=== PATIENT | female | born 1990 | race Hispanic/Latino ===

== ENCOUNTER → 2016-10-08 | Outpatient (CLI) | payer OTHER ==
[~2016-10-08] MED LIST: CELE20TA PO; METF10004 PO; OXYC1TAB23 PO; YAZ1TAB PO
--- NOTE | 2016-10-08 22:08 | REP ---
Clinical: Constipation and abdominal pain. Technique: Upright view of the chest with supine and upright views of the abdomen and pelvis. Findings: Frontal upright view of the chest demonstrates no acute cardiopulmonary process or free air below the diaphragm to suspect pneumoperitoneum. Supine and upright views of the abdomen and pelvis demonstrate nonspecific bowel gas pattern without obstruction or perforation. No organomegaly. No abnormal calcifications. Skeletal structures normal for age. Impression: Nonspecific bowel gas pattern. Signed by Leon Méndez MD 10/08/2016 09:59 P
== END ==
LOC: M SMT 11:51
PROVIDERS: ATTEND Family Medicine
DX: K59.00 Constipation, unspecified (principal)

== ENCOUNTER → 2016-10-16 | Outpatient (CLI) | payer OTHER ==
--- NOTE | 2016-10-16 12:44 | REP ---
Clinical: Nausea and vomiting with right upper quadrant abdominal pain. Technique: Escobar scale ultrasound using curved array transducer. Findings: The liver and pancreas are normal in contour, size, and echogenicity without focal hepatic or pancreatic lesions identified. The gallbladder is normal without gallstones, wall thickening or pericholecystic fluid. No biliary ductal dilatation is appreciated, and the common bile duct measures 3.5 mm diameter. The right kidney is normal in reniform shape without hydronephrosis and measures 10.9 x 3.8 x 4.7 cm. No ascites. Visualized portions of the abdominal aorta normal. Impression: Normal right upper quadrant and gallbladder abdominal ultrasound. Signed by Leon Méndez MD 10/16/2016 12:41 P
[2016-10-16 13:50] LABS: BASO % 0.2 % (0.0-1.0); EOS # 0.1 K/mm3 (0.0-0.50); LARGE UNSTAINED CELL # 0.1 K/mm3 (0.0-0.4); LARGE UNSTAINED CELL % 1.9 % (0.0-4.0); LYMPH # 1.8 K/mm3 (1.5-6.5); LYMPH % 32.3 % (24.0-44.0); MEAN CORPUSCULAR HEMOGLOBIN 30.6 pg (27.0-33.0); MEAN CORPUSCULAR HGB CONC 34.4 g/dl (32.0-36.5); MEAN CORPUSCULAR VOLUME 88.9 fl (80.0-96.0); MONO # 0.3 K/mm3 (0.0-0.8); MONO % 4.7 % (0.0-5.0); NEUTROPHILS # 3.4 K/mm3 (1.8-7.7); NEUTROPHILS % 59.9 % (36.0-66.0); PLATELET COUNT, AUTOMATED 256 k/mm3 (150-450); RED CELL DISTRIBUTION WIDTH 12.4 % (11.5-14.5); WHITE BLOOD COUNT 5.7 K/mm3 (4.0-10.0)
[2016-10-16 14:00] LABS: ALBUMIN 3.7 GM/DL (3.2-5.2); ALBUMIN/GLOBULIN RATIO 0.95 (1.00-1.93); ALKALINE PHOSPHATASE 64 U/L (45-117); ALT/SGPT 21 U/L (12-78); AMYLASE 32 U/L (25-115); ANION GAP 7 MEQ/L (8-16); AST/SGOT 16 U/L (15-37); BILIRUBIN,TOTAL 0.3 MG/DL (0.2-1.0); BLOOD UREA NITROGEN 12 MG/DL (7-18); CALCIUM LEVEL 9.1 MG/DL (8.5-10.1); CARBON DIOXIDE LEVEL 28 MEQ/L (21-32); CHLORIDE LEVEL 105 MEQ/L (98-107); CREATININE FOR GFR 0.75 MG/DL (0.55-1.02); GLOMERULAR FILTRATION RATE > 60.0 (>60); GLUCOSE, FASTING 85 MG/DL (70-105); POTASSIUM SERUM 4.9 MEQ/L (3.5-5.1); SODIUM LEVEL 140 MEQ/L (136-145); TOTAL PROTEIN 7.6 GM/DL (6.4-8.2)
== END ==
LOC: M LAB 12:14
PROVIDERS: ATTEND Family Medicine
DX: R10.11 Right upper quadrant pain (principal); R11.2 Nausea with vomiting, unspecified

== ENCOUNTER 2016-10-24 09:52 | Day surgery (SDC) | payer OTHER ==
[~2016-10-24] VITALS: Ht 167.6 cm; Wt 92.5 kg
[~2016-10-24 09:52] MED LIST changes: -OXYC1TAB23 PO
[2016-10-24] MEDS ORDERED: LR 1,000 ML IV ONE (10:15)
[2016-10-24] MEDS ORDERED: LIDOCAINE 1% SDV 5 ML VIAL SQ ONE (10:15)
[2016-10-24] MEDS ORDERED: BUPIVACAINE HCL 0.25% 30 ML VIAL As Ordered ONE (10:42)
[2016-10-24] MEDS ORDERED: METHYLENE BLUE 0.5% (5MG/ML) 10 ML AMP (PROVAYBLUE)(Q9968 PER 1MG) As Ordered ONE (10:42)
[2016-10-24] MEDS ORDERED: LIDOCAINE 2% INJ 100 MG/5 ML SDV (FOR ANES.) As Ordered ONE (10:43)
[2016-10-24] MEDS ORDERED: fentaNYL 100 MCG/2 ML INJECTION (J3010) As Ordered ONE ×2 (10:43→12:22)
[2016-10-24] MEDS ORDERED: ROCURONIUM BROMIDE 50 MG/5 ML VIAL/SYRINGE As Ordered ONE (10:43)
[2016-10-24] MEDS ORDERED: dexameTHASONE 4 MG/ML 1ML VIAL (J1100) As Ordered ONE (10:43)
[2016-10-24] MEDS ORDERED: PROPOFOL 200 MG/20 ML VIAL As Ordered ONE (10:43)
[2016-10-24] MEDS ORDERED: ONDANSETRON 4MG/2ML VIAL (J2405) As Ordered ONE (10:43)
[2016-10-24] MEDS ORDERED: MIDAZOLAM INJ 2 MG/2 ML VIAL (J2250) As Ordered ONE (10:44)
[2016-10-24 10:54] LABS: CONTROL LINE UCG INT CTR LINE PRESENT
[2016-10-24] MEDS ORDERED: OXYC1TAB23 PO (11:17)
[2016-10-24] MEDS ORDERED: ePHEDrine SULFATE 25 MG/5 ML(5MG/ML) SYRINGE As Ordered ONE (11:24)
[2016-10-24] MEDS ORDERED: HYDROmorphone HCL 2 MG/ML 1ML VIAL (J1170) As Ordered ONE (11:35)
[2016-10-24] MEDS ORDERED: GLYCOPYRROLATE INJ 0.2 MG/ML 2 ML VIAL As Ordered ONE (11:35)
[2016-10-24] MEDS ORDERED: NEOSTIGMINE 10 MG/10 ML VIAL (J2710) As Ordered ONE (11:36)
[2016-10-24] MEDS: fentaNYL 100 MCG/2 ML INJECTION (J3010) IV PRN ×4 (12:25→12:50)
[2016-10-24] MEDS ORDERED: PERCOCET 5MG/325MG TAB As Ordered ONE (12:41)
[2016-10-24] MEDS: PERCOCET 5MG/325MG TAB PO PRN ×2 (12:44→13:09)
[2016-10-24] MEDS ORDERED: ONDANSETRON 4MG/2ML VIAL (J2405) IV PRN (12:45)
[2016-10-24] MEDS ORDERED: LR 1,000 ML IV SCH ×2 (12:45→14:00)
[2016-10-24] MEDS ORDERED: PERCOCET 5MG/325MG TAB PO PRN ×2 (12:45)
[2016-10-24 13:35] VITALS: BP 127/60
--- NOTE | 2016-11-13 09:31 | RO ---
DATE OF PROCEDURE: 10/24/2016 PREPROCEDURE DIAGNOSIS: Endometriosis, pelvic pain. POSTPROCEDURE DIAGNOSIS: Pelvic pain. PROCEDURE: Laparoscopy, lysis of mild adhesions. SURGEON: Dr. Reyes Santos SYSTEMS ANALYSIS MANAGER: None. ANESTHESIA: General endotracheal tube. ESTIMATED BLOOD LOSS: Minimal. FINDINGS: No evidence of endometroisis. Normal uterus and fallopian tubes. Mild adhesions of the right ovary to the fundus of the uterus at the level of the utero-ovarian ligament. Both tubes showed ready fill and spill of dye on chromotubation. OPERATIVE SUMMARY: The patient was taken to the operating room where general endotracheal anesthesia was induced. She was prepped and draped in sterile fashion in the dorsal lithotomy position. A Browne catheter was placed. A [employer] uterine tenaculum was placed to use an uterine manipulator. A periumbilical incision made with a scalpel. Veress needle was placed through this incision while tenting up on the skin of the abdomen. Intraabdominal location of the Veress needle was assessed with the use of a saline filled syringe. Pneumoperitoneum was created. The Veress needle was removed. An 11 mm trocar using Visiport was directly inserted through this incision. A 5 mm suprapubic port was placed under direct visualization. Visualization of the abdomen and pelvis revealed the findings noted above. The pelvis was thoroughly examined with no evidence of endometriosis. Adhesions of the right ovary to the uterus were taken down sharply using Endo romel. The uterine manipulator was placed with a Phokki uterine manipulator and dilute methylene blue dye was instilled and there was ready fill and spill from both fallopian tubes. The pneumoperitoneum was released. All instruments were removed. The skin was closed with #4-0 Monocryl subcuticular sutures. Sponge, instrument and needle counts were correct.
== END 2016-10-24 13:55 | disposition home or self-care (01) ==
LOC: M SDC 09:52
PROVIDERS: ATTEND Specialist
DX: R10.2 Pelvic and perineal pain (principal); N73.6 Female pelvic peritoneal adhesions (postinfective); M32.9 Systemic lupus erythematosus, unspecified; F41.9 Anxiety disorder, unspecified; F32.9 Major depressive disorder, single episode, unspecified; F43.10 Post-traumatic stress disorder, unspecified; Z88.1 Allergy status to other antibiotic agents; Z88.5 Allergy status to narcotic agent; Z87.820 Personal history of traumatic brain injury; Z79.84 Long term (current) use of oral hypoglycemic drugs; Z79.899 Other long term (current) drug therapy; Z79.3 Long term (current) use of hormonal contraceptives
CPT/HCPCS: 58660; 84703; J1100; J1170; J2250; J2405; J2710; J3010; Q9968

== ENCOUNTER → 2016-11-04 | Outpatient (REF) | payer OTHER ==
[~2016-11-04] MED LIST changes: +OXYC1TAB23 PO
== END ==
LOC: M LAB REF 17:21
PROVIDERS: ATTEND Family Medicine
DX: R30.0 Dysuria (principal)

== ENCOUNTER → 2016-12-30 | Outpatient (CLI) | payer OTHER ==
--- NOTE | 2016-12-30 22:49 | REP ---
Clinical: Contusion. Technique: AP and lateral views of the left tibia / fibula. Findings: No acute fracture dislocation. Skeletal structures, joint spaces, and surrounding soft tissues appear normal. No subcutaneous emphysema or foreign body. Impression: Normal left tibia / fibula. No fracture or dislocation. Signed by Leon Méndez MD 12/30/2016 10:41 P
== END ==
LOC: M WUC 18:57
PROVIDERS: ATTEND Physician Assistant
DX: S80.12XA Contusion of left lower leg, initial encounter (principal); X58.XXXA Exposure to other specified factors, initial encounter; Y92.89 Other specified places as the place of occurrence of the external cause; Y93.89 Activity, other specified; Y99.8 Other external cause status

== ENCOUNTER → 2017-01-12 | Outpatient (REF) | payer OTHER | LOC: M LAB REF 16:58 | PROVIDERS: ATTEND Physician Assistant Medical | DX: R30.0 Dysuria (principal) ==

== ENCOUNTER 2017-02-10 14:50 | Emergency (ER) | payer OTHER ==
[2017-02-10] MEDS: NS 1,000 ML IV (10:00)
[2017-02-10 15:48] LABS: APPEARANCE, URINE MANUAL HAZY (CLEAR); BILIRUBIN, URINE MANUAL NEGATIVE (NEGATIVE); COLOR, URINE MANUAL PINK (YELLOW); GLUCOSE, URINE (UA) MANUAL NEGATIVE (NEGATIVE); KETONE, URINE MANUAL NEGATIVE (NEGATIVE); PROTEIN, URINE MANUAL NEGATIVE (NEGATIVE); SPECIFIC GRAVITY,URINE MANUAL 1.005 (1.002-1.035); UROBILINOGEN, URINE MANUAL NORMAL (NORMAL)
[2017-02-10 15:49] LABS: NITRITE, URINE MANUAL RFX NEGATIVE (NEGATIVE)
[2017-02-10 15:51] LABS: BLOOD URINE MANUAL RFX POSITIVE (NEGATIVE)
[2017-02-10 15:58] LABS: BACTERIA, URINE SMALL AMOUNT; HYALINE CAST, URINE NONE SEEN /lpf (0-1); MICROSCOPIC EXAM PERFORMED; SQUAMOUS EPITHELIAL CELL URINE SMALL AMOUNT /hpf (SMALL AMT)
[2017-02-10] MEDS: ONDANSETRON 4MG/2ML VIAL (J2405) IV (17:45)
[2017-02-10] MEDS: MORPHINE 2 MG/ML 1ML SYRINGE IV ×2 (17:45→20:22)
[2017-02-10] MEDS: MORPHINE 4 MG/ML 1ML SYRINGE IV (18:28)
[2017-02-10 18:30] LABS: BASO % 0.4 % (0.0-1.0); EOS # 0.1 10^3/uL (0.0-0.50); EOS % 0.9 % (0.0-3.0); HEMATOCRIT 35.2 % (36.0-47.0); HEMOGLOBIN 11.9 g/dl (12.0-16.0); IMMATURE GRANULOCYTE % 0.4 % (0-0); LYMPH # 2.8 10^3/uL (1.5-6.5); LYMPH % 40.9 % (24.0-44.0); MEAN CORPUSCULAR HEMOGLOBIN 30.1 pg (27.0-33.0); MEAN CORPUSCULAR HGB CONC 33.8 g/dl (32.0-36.5); MEAN CORPUSCULAR VOLUME 89.1 fl (80.0-96.0); MONO # 0.5 10^3/uL (0.0-0.8); NEUTROPHILS # 3.5 10^3/uL (1.8-7.7); NEUTROPHILS % 50.4 % (36.0-66.0); PLATELET COUNT, AUTOMATED 225 10^3/uL (150-450); RED BLOOD COUNT 3.95 10^6/uL (4.00-5.40); RED CELL DISTRIBUTION WIDTH 12.9 % (11.5-14.5); WHITE BLOOD COUNT 6.9 10^3/uL (4.0-10.0)
[2017-02-10 18:50] LABS: ANION GAP 9 MEQ/L (8-16); BLOOD UREA NITROGEN 10 MG/DL (7-18); CALCIUM LEVEL 8.6 MG/DL (8.5-10.1); CARBON DIOXIDE LEVEL 25 MEQ/L (21-32); CHLORIDE LEVEL 108 MEQ/L (98-107); CREATININE FOR GFR 0.64 MG/DL (0.55-1.02); GLOMERULAR FILTRATION RATE > 60.0 (>60); GLUCOSE, FASTING 85 MG/DL (70-105); POTASSIUM SERUM 3.9 MEQ/L (3.5-5.1); SODIUM LEVEL 142 MEQ/L (136-145)
[2017-02-10] MEDS: NITROFURANTOIN (MACROBID) 100 MG CAP PO (20:30)
== END 2017-02-10 20:34 | disposition home or self-care (01) ==
LOC: M ED 14:50
DX: N39.0 Urinary tract infection, site not specified (principal); R10.2 Pelvic and perineal pain; N80.9 Endometriosis, unspecified; F41.9 Anxiety disorder, unspecified; F32.9 Major depressive disorder, single episode, unspecified
CPT/HCPCS: J2405

== ENCOUNTER → 2017-03-23 | Outpatient (CLI) | payer OTHER | LOC: M RAD 10:59 | DX: E04.9 Nontoxic goiter, unspecified (principal) | CPT/HCPCS: 76536 ==

== ENCOUNTER → 2017-04-03 | Outpatient (CLI) | payer OTHER ==
[2017-04-03 13:27] LABS: ESTIMATED AVERAGE GLUCOSE 105 MG/DL (60-110); HEMOGLOBIN A1c 5.3 %
[2017-04-03 13:45] LABS: ANION GAP 7 MEQ/L (8-16); BLOOD UREA NITROGEN 10 MG/DL (7-18); CALCIUM LEVEL 9.1 MG/DL (8.5-10.1); CARBON DIOXIDE LEVEL 24 MEQ/L (21-32); CHLORIDE LEVEL 108 MEQ/L (98-107); CREATININE FOR GFR 0.73 MG/DL (0.55-1.30); GLOMERULAR FILTRATION RATE > 60.0 (>60); GLUCOSE, FASTING 90 MG/DL (70-100); POTASSIUM SERUM 4.6 MEQ/L (3.5-5.1); SODIUM LEVEL 139 MEQ/L (136-145)
[2017-04-04 14:10] LABS: C-PEPTIDE 3.2 ng/mL (1.1-4.4)
== END ==
LOC: M LAB 11:28
DX: Z13.1 Encounter for screening for diabetes mellitus (principal)

== ENCOUNTER → 2017-04-03 | Outpatient (CLI) | payer OTHER ==
[2017-04-03 14:09] LABS: ALBUMIN 3.9 GM/DL (3.2-5.2); ALBUMIN/GLOBULIN RATIO 0.95 (1.00-1.93); ALKALINE PHOSPHATASE 86 U/L (45-117); ALT/SGPT 31 U/L (12-78); AMYLASE 27 U/L (25-115); ANION GAP 8 MEQ/L (8-16); AST/SGOT 19 U/L (7-37); BILIRUBIN,TOTAL 0.3 MG/DL (0.2-1.0); BLOOD UREA NITROGEN 10 MG/DL (7-18); CALCIUM LEVEL 9.3 MG/DL (8.5-10.1); CARBON DIOXIDE LEVEL 24 MEQ/L (21-32); CHLORIDE LEVEL 109 MEQ/L (98-107); CREATININE FOR GFR 0.74 MG/DL (0.55-1.30); FREE T4 1.15 NG/DL (0.76-1.46); GLOMERULAR FILTRATION RATE > 60.0 (>60); GLUCOSE, FASTING 87 MG/DL (70-100); LIPASE 68 U/L (73-393); POTASSIUM SERUM 4.6 MEQ/L (3.5-5.1); SODIUM LEVEL 141 MEQ/L (136-145)
[2017-04-03 14:58] LABS: D-DIMER QUANT 833.6 ng/ml (<500)
== END ==
LOC: M LAB 12:26
DX: R10.13 Epigastric pain (principal)

== ENCOUNTER 2017-04-08 17:55 | Emergency (ER) | payer OTHER ==
[2017-04-08 18:57] LABS: BEDSIDE GLUCOSE 88 MG/DL (70-105)
[2017-04-08 19:27] LABS: BASO % 0.2 % (0.0-1.0); EOS # 0.1 10^3/uL (0.0-0.50); EOS % 0.6 % (0.0-3.0); HEMATOCRIT 35.4 % (36.0-47.0); HEMOGLOBIN 12.2 g/dl (12.0-16.0); IMMATURE GRANULOCYTE % 0.2 % (0-3.0); LYMPH # 2.8 10^3/uL (1.5-6.5); MEAN CORPUSCULAR HEMOGLOBIN 29.8 pg (27.0-33.0); MEAN CORPUSCULAR HGB CONC 34.5 g/dl (32.0-36.5); MEAN CORPUSCULAR VOLUME 86.3 fl (80.0-96.0); MONO # 0.5 10^3/uL (0.0-0.8); MONO % 6.1 % (0.0-5.0); NEUTROPHILS # 5.5 10^3/uL (1.8-7.7); NEUTROPHILS % 61.9 % (36.0-66.0); PLATELET COUNT, AUTOMATED 219 10^3/uL (150-450); RED CELL DISTRIBUTION WIDTH 12.2 % (11.5-14.5); WHITE BLOOD COUNT 8.9 10^3/uL (4.0-10.0)
[2017-04-08 20:11] LABS: ALBUMIN 3.5 GM/DL (3.2-5.2); ALKALINE PHOSPHATASE 91 U/L (45-117); ALT/SGPT 37 U/L (12-78); ANION GAP 10 MEQ/L (8-16); AST/SGOT 26 U/L (7-37); BILIRUBIN,TOTAL 0.5 MG/DL (0.2-1.0); BLOOD UREA NITROGEN 10 MG/DL (7-18); CARBON DIOXIDE LEVEL 24 MEQ/L (21-32); CHLORIDE LEVEL 105 MEQ/L (98-107); CPK CREATINE PHOSPHOKINASE 79 U/L (26-192); CREATININE FOR GFR 0.67 MG/DL (0.55-1.30); GLOMERULAR FILTRATION RATE > 60.0 (>60); GLUCOSE, FASTING 78 MG/DL (70-100); MB/CK RELATIVE INDEX 1.26 (< OR =4); SODIUM LEVEL 139 MEQ/L (136-145); TOTAL PROTEIN 7.4 GM/DL (6.4-8.2); TROPONIN I < 0.02 NG/ML (< 0.10)
[2017-04-08] MEDS: GI COCKTAIL 50ML BTL(HYOSCYAMINE/MAALOX/LIDOCAINE VISCOUS)(1:3:1) PO (20:43)
[2017-04-08] MEDS ORDERED: ISOVUE-370 76% 100ML VIAL (Q9967) As Ordered (20:49)
== END 2017-04-08 22:14 | disposition home or self-care (01) ==
LOC: M ED 17:55
DX: J01.90 Acute sinusitis, unspecified (principal); J45.909 Unspecified asthma, uncomplicated; Z86.711 Personal history of pulmonary embolism; M32.9 Systemic lupus erythematosus, unspecified; Z82.49 Family history of ischemic heart disease and other diseases of the circulatory system; Z79.3 Long term (current) use of hormonal contraceptives; Z79.899 Other long term (current) drug therapy; Z88.6 Allergy status to analgesic agent; Z88.0 Allergy status to penicillin; Z88.1 Allergy status to other antibiotic agents; Z88.8 Allergy status to other drugs, medicaments and biological substances; Z88.5 Allergy status to narcotic agent
CPT/HCPCS: Q9967

== ENCOUNTER → 2017-05-06 | Outpatient (REF) | payer OTHER | LOC: M LAB REF 18:47 | DX: Z12.4 Encounter for screening for malignant neoplasm of cervix (principal) | CPT/HCPCS: G0123 ==

== ENCOUNTER 2017-06-03 08:48 | Day surgery (SDC) | payer OTHER ==
[2017-06-03 09:37] LABS: HEMATOCRIT 38.4 % (36.0-47.0); HEMOGLOBIN 13.1 g/dl (12.0-15.5); MEAN CORPUSCULAR HGB CONC 34.1 g/dl (32.0-36.5); MEAN CORPUSCULAR VOLUME 88.1 fl (80.0-96.0); PLATELET COUNT, AUTOMATED 225 10^3/uL (150-450); RED BLOOD COUNT 4.36 10^6/uL (4.00-5.40); RED CELL DISTRIBUTION WIDTH 12.6 % (11.5-14.5); WHITE BLOOD COUNT 5.4 10^3/uL (4.0-10.0)
[2017-06-03 09:42] LABS: CONTROL LINE UCG INT CTR LINE PRESENT; URINE PREG TEST NEGATIVE (NEGATIVE)
[2017-06-03] MEDS: LR 1,000 ML IV ×2 (10:05→12:26)
[2017-06-03] MEDS ORDERED: ROCURONIUM BROMIDE 50 MG/5 ML VIAL As Ordered (10:09)
[2017-06-03] MEDS ORDERED: fentaNYL 100 MCG/2 ML INJECTION (J3010) As Ordered ×3 (10:09→12:29)
[2017-06-03] MEDS ORDERED: LIDOCAINE 2% INJ 100 MG/5 ML SDV (FOR ANES.) As Ordered (10:09)
[2017-06-03] MEDS ORDERED: PROPOFOL 200 MG/20 ML VIAL As Ordered (10:09)
[2017-06-03] MEDS ORDERED: MIDAZOLAM INJ 2 MG/2 ML VIAL (J2250) As Ordered (10:09)
[2017-06-03] MEDS ORDERED: ONDANSETRON 4MG/2ML VIAL (J2405) As Ordered ×2 (10:11→12:29)
[2017-06-03] MEDS ORDERED: dexameTHASONE 4 MG/ML 1ML VIAL (J1100) As Ordered (10:12)
[2017-06-03] MEDS ORDERED: NEOSTIGMINE 10 MG/10 ML VIAL (J2710) As Ordered (11:31)
[2017-06-03] MEDS ORDERED: GLYCOPYRROLATE INJ 0.2 MG/ML 2 ML VIAL As Ordered (11:31)
[2017-06-03] MEDS: BUPIVACAINE HCL 0.25% 30 ML VIAL As Ordered (12:08)
[2017-06-03] MEDS ORDERED: HYDROmorphone HCL 1 MG/ML SYRINGE (J1170) As Ordered (12:29)
[2017-06-03] MEDS ORDERED: PERCOCET 5MG/325MG TAB As Ordered (12:29)
[2017-06-03] MEDS: fentaNYL 100 MCG/2 ML INJECTION (J3010) IV ×4 (12:30→12:45)
[2017-06-03] MEDS: ONDANSETRON 4MG/2ML VIAL (J2405) IV (12:30)
[2017-06-03] MEDS ORDERED: PERCOCET 5MG/325MG TAB PO ×2 (12:45)
[2017-06-03] MEDS ORDERED: LR 1,000 ML IV (12:45)
[2017-06-03] MEDS: oxyCODONE 5MG TAB PO (13:00)
[2017-06-03] MEDS ORDERED: HYDROmorphone HCL 1 MG/ML SYRINGE (J1170) IV (13:00)
== END 2017-06-03 14:20 | disposition home or self-care (01) ==
LOC: M SDC 08:48
DX: E28.2 Polycystic ovarian syndrome (principal); M32.10 Systemic lupus erythematosus, organ or system involvement unspecified; F43.10 Post-traumatic stress disorder, unspecified; Z79.899 Other long term (current) drug therapy; F41.9 Anxiety disorder, unspecified; F32.9 Major depressive disorder, single episode, unspecified; Z88.0 Allergy status to penicillin; Z88.8 Allergy status to other drugs, medicaments and biological substances; Z91.030 Bee allergy status
CPT/HCPCS: 49322

== ENCOUNTER 2017-08-09 16:02 | Emergency (ER) | payer OTHER ==
[2017-08-09] MEDS: IBUPROFEN 600 MG TAB PO (17:00)
[2017-08-09] MEDS: ONDANSETRON 4 MG ORAL DISINTEGRATING TAB (Q0162 PER 1MG) PO (17:02)
== END 2017-08-09 18:58 | disposition home or self-care (01) ==
LOC: M ED 16:02
DX: Z04.1 Encounter for examination and observation following transport accident (principal); M79.641 Pain in right hand; M79.642 Pain in left hand; M40.202 Unspecified kyphosis, cervical region; E11.9 Type 2 diabetes mellitus without complications; J45.909 Unspecified asthma, uncomplicated; K21.9 Gastro-esophageal reflux disease without esophagitis; E28.2 Polycystic ovarian syndrome; Z79.84 Long term (current) use of oral hypoglycemic drugs; Z79.899 Other long term (current) drug therapy; Z79.3 Long term (current) use of hormonal contraceptives; Z86.69 Personal history of other diseases of the nervous system and sense organs; Z88.8 Allergy status to other drugs, medicaments and biological substances; Z88.5 Allergy status to narcotic agent; Z88.1 Allergy status to other antibiotic agents; Z91.013 Allergy to seafood
CPT/HCPCS: Q0162

== ENCOUNTER 2017-12-23 10:24 | Emergency (ER) | payer OTHER, SELFPAY ==
[2017-12-23 11:20] LABS: KETONE, URINE AUTO RFX NEGATIVE (NEGATIVE); LEUKOCYTE ESTERASE UR AUTO RFX NEGATIVE (NEGATIVE); NITRITE, URINE AUTO RFX NEGATIVE (NEGATIVE); RBC, URINE AUTO RFX 1 /HPF (0-3); SPECIFIC GRAVITY UR AUTO RFX 1.013 (1.002-1.035); SQUAM EPITHELIAL CELL UR AURFX 1 /HPF (0-6); WBC, URINE AUTO RFX 1 /HPF (0-3)
[2017-12-23 11:56] LABS: HCG, SERUM QUANTITATIVE 14090 MIU/ML
== END 2017-12-23 12:42 | disposition home or self-care (01) ==
LOC: M ED 10:24
DX: O26.891 Other specified pregnancy related conditions, first trimester (principal); R10.2 Pelvic and perineal pain; O99.281 Endocrine, nutritional and metabolic diseases complicating pregnancy, first trimester; E28.2 Polycystic ovarian syndrome; Z3A.01 Less than 8 weeks gestation of pregnancy; Z98.890 Other specified postprocedural states; Z88.8 Allergy status to other drugs, medicaments and biological substances; Z88.0 Allergy status to penicillin; Z88.1 Allergy status to other antibiotic agents; Z88.5 Allergy status to narcotic agent; Z91.030 Bee allergy status; Z91.013 Allergy to seafood
CPT/HCPCS: 76801

== ENCOUNTER → 2017-12-29 | Outpatient (CLI) | payer OTHER ==
[2017-12-29 13:38] LABS: BASO % 0.2 % (0.0-1.0); EOS % 0.3 % (0.0-3.0); HEMATOCRIT 36.8 % (36.0-47.0); HEMOGLOBIN 12.5 g/dl (12.0-15.5); IMMATURE GRANULOCYTE % 0.2 % (0-3.0); LYMPH # 2.1 10^3/uL (1.5-6.5); LYMPH % 23.5 % (24.0-44.0); MEAN CORPUSCULAR HEMOGLOBIN 29.5 pg (27.0-33.0); MEAN CORPUSCULAR VOLUME 86.8 fl (80.0-96.0); MONO # 0.6 10^3/uL (0.0-0.8); NEUTROPHILS # 6.3 10^3/uL (1.8-7.7); NEUTROPHILS % 68.8 % (36.0-66.0); PLATELET COUNT, AUTOMATED 231 10^3/uL (150-450); RED BLOOD COUNT 4.24 10^6/uL (4.00-5.40); RED CELL DISTRIBUTION WIDTH 13.3 % (11.5-14.5); WHITE BLOOD COUNT 9.1 10^3/uL (4.0-10.0)
[2017-12-29 15:26] LABS: CHLAMYDIA DNA AMPLIFICATION NEGATIVE (NEGATIVE); GC DNA AMPLIFICATION NEGATIVE (NEGATIVE)
[2017-12-30 08:13] LABS: HEPATITIS C VIRUS ABY INDEX 0.1 INDEX (<0.8)
[2017-12-30 08:13] LABS: HBsAg Prenatal NEGATIVE (NEGATIVE); HIV 1&2 SCREEN CENTAUR NEGATIVE (NEGATIVE); RUBELLA IgG QUALITATIVE IMMUNE (IMMUNE)
== END ==
LOC: M SMT 10:32
DX: Z34.81 Encounter for supervision of other normal pregnancy, first trimester (principal)
CPT/HCPCS: 86762

== ENCOUNTER 2018-01-23 18:17 | Emergency (ER) | payer OTHER ==
[2018-01-23 19:58] LABS: BASO % 0.3 % (0.0-1.0); EOS # 0.1 10^3/uL (0.0-0.50); EOS % 0.7 % (0.0-3.0); HEMATOCRIT 34.7 % (36.0-47.0); HEMOGLOBIN 12.2 g/dl (12.0-15.5); IMMATURE GRANULOCYTE % 0.4 % (0-3.0); LYMPH % 24.6 % (24.0-44.0); MEAN CORPUSCULAR HEMOGLOBIN 30.8 pg (27.0-33.0); MEAN CORPUSCULAR HGB CONC 35.2 g/dl (32.0-36.5); MEAN CORPUSCULAR VOLUME 87.6 fl (80.0-96.0); MONO # 0.7 10^3/uL (0.0-0.8); NEUTROPHILS # 8.1 10^3/uL (1.8-7.7); PLATELET COUNT, AUTOMATED 222 10^3/uL (150-450); RED BLOOD COUNT 3.96 10^6/uL (4.00-5.40); RED CELL DISTRIBUTION WIDTH 12.7 % (11.5-14.5)
[2018-01-23 20:17] LABS: ANION GAP 8 MEQ/L (8-16); BLOOD UREA NITROGEN 8 MG/DL (7-18); CARBON DIOXIDE LEVEL 25 MEQ/L (21-32); CHLORIDE LEVEL 105 MEQ/L (98-107); CREATININE FOR GFR 0.59 MG/DL (0.55-1.30); GLOMERULAR FILTRATION RATE > 60.0 (>60); GLUCOSE, FASTING 87 MG/DL (70-100); POTASSIUM SERUM 3.9 MEQ/L (3.5-5.1); SODIUM LEVEL 138 MEQ/L (136-145)
[2018-01-23] MEDS: NS 1,000 ML IV (20:18)
[2018-01-23] MEDS: METOCLOPRAMIDE INJ 10MG/2ML VIAL (J2765) IV (20:18)
[2018-01-23 20:36] LABS: APPEARANCE, URINE HAZY (CLEAR); BACTERIA, URINE AUTO NEGATIVE (NEGATIVE); BILIRUBIN, URINE AUTO NEGATIVE (NEGATIVE); BLOOD, URINE BLOOD NEGATIVE (NEGATIVE); COLOR, URINE YELLOW (YELLOW); GLUCOSE, URINE (UA) AUTO NEGATIVE (NEGATIVE); KETONE, URINE AUTO NEGATIVE (NEGATIVE); LEUKOCYTE ESTERASE, URINE AUTO NEGATIVE (NEGATIVE); MUCUS, URINE SMALL (NEGATIVE); NITRITE, URINE AUTO NEGATIVE (NEGATIVE); PROTEIN, URINE AUTO NEGATIVE (NEGATIVE); RBC, URINE AUTO 0 /HPF (0-3); SQUAMOUS EPITHELIAL CELL UR AU 1 /HPF (0-6); TRANSITIONAL EPITHELIAL AUTO <1 /HPF; UROBILINOGEN, URINE AUTO 0.2 mg/dL (0.0-2.0); WBC, URINE AUTO 0 /HPF (0-3)
== END 2018-01-23 21:37 | disposition home or self-care (01) ==
LOC: M ED 18:17
DX: O21.0 Mild hyperemesis gravidarum (principal); O20.8 Other hemorrhage in early pregnancy; O99.341 Other mental disorders complicating pregnancy, first trimester; Z3A.10 10 weeks gestation of pregnancy; Z79.899 Other long term (current) drug therapy; Z88.6 Allergy status to analgesic agent; Z88.0 Allergy status to penicillin; Z88.1 Allergy status to other antibiotic agents; Z88.5 Allergy status to narcotic agent; Z91.030 Bee allergy status
CPT/HCPCS: J2765

== ENCOUNTER → 2018-02-10 | Outpatient (CLI) | payer OTHER ==
[~2018-02-10] MED LIST changes: +ADDE20CA3 PO; +ALPR2TAB3 PO; +CEFD300CAP FT; +MACR100C43 PO; +NUVAMIS2 VA; +OXYC-517 PO; +PREN1TAB11 PO; +ROBA500T PO; +SYMB16INH INH
== END ==
LOC: M SMT 10:26
PROVIDERS: ATTEND Specialist
DX: Z36.89 Encounter for other specified antenatal screening (principal)

== ENCOUNTER → 2018-03-05 | Outpatient (CLI) | payer OTHER ==
[2018-03-05 11:41] LABS: ALBUMIN 3.1 GM/DL (3.2-5.2); ALT/SGPT 39 U/L (12-78); BILIRUBIN,TOTAL 0.3 MG/DL (0.2-1.0); BLOOD UREA NITROGEN 9 MG/DL (7-18); CALCIUM LEVEL 8.8 MG/DL (8.5-10.1); CARBON DIOXIDE LEVEL 22 MEQ/L (21-32); CHLORIDE LEVEL 105 MEQ/L (98-107); GLOMERULAR FILTRATION RATE > 60.0 (>60); GLUCOSE, FASTING 79 MG/DL (70-100); POTASSIUM SERUM 4.6 MEQ/L (3.5-5.1); SODIUM LEVEL 136 MEQ/L (136-145); TOTAL PROTEIN 6.6 GM/DL (6.4-8.2)
[2018-03-05 12:51] LABS: TOTAL PROTEIN,RANDOM URINE 22.1 MG/DL (0.0-12.0)
[2018-03-06 14:47] LABS: ANTI DOUBLE STRAND-DNA AB <1 IU/mL (0-9); SSA SJOGRENS A <0.2 AI (0.0-0.9); SSB SJOGRENS B <0.2 AI (0.0-0.9)
== END ==
LOC: M SMT 09:12
PROVIDERS: ATTEND Obstetrics & Gynecology
DX: O99.89 Other specified diseases and conditions complicating pregnancy, childbirth and the puerperium (principal); M32.9 Systemic lupus erythematosus, unspecified

== ENCOUNTER → 2018-03-22 | Outpatient (CLI) | payer OTHER ==
--- NOTE | 2018-03-22 14:39 | REP ---
OB ULTRASOUND: Real-time sonographic evaluation of gravid uterus performed. There is a single living intrauterine gestation. Estimated gestational age 19 weeks 2 days. EDC 08/14/2018. Today's measurements indicate appropriate growth. BPD 43 mm = 19 weeks 0 days, 42nd percentile HC 162 mm = 19 weeks 0 days, 41st percentile AC 141 mm = 19 weeks 3 days, 54th percentile Femur length 29 mm = 18 weeks 6 days, 40th percentile HC/AC ratio 1.15, within normal range. Estimated weight 279 grams, 42nd percentile. Cervix is closed and measures 3.5 cm in length. heart rate 130 beats per minute. SEEN/GROSSLY UNREMARKABLE Lateral ventricles Yes Posterior fossa Yes Upper lip Yes Four-chamber heart Yes LVOT Yes RVOT No Stomach Yes Cord insertion Yes Three vessel cord Yes Kidneys Yes Bladder Yes Spine Yes position: Breech. Placenta: Anterior and grade 1 with no previa or abruption. Amniotic fluid: Within normal limits. Note is made of venous lakes in the placenta. Electronically Signed by Tima Escobar MD 03/22/2018 11:45 P
== END ==
LOC: M RAD 09:42
PROVIDERS: ATTEND Obstetrics & Gynecology
DX: O32.1XX0 Maternal care for breech presentation, not applicable or unspecified (principal); Z36.89 Encounter for other specified antenatal screening; Z3A.19 19 weeks gestation of pregnancy

== ENCOUNTER → 2018-03-23 | Outpatient (REF) | payer OTHER | LOC: M LAB REF 17:09 | PROVIDERS: ATTEND Specialist | DX: R30.0 Dysuria (principal) ==

== ENCOUNTER → 2018-04-09 | Outpatient (CLI) | payer OTHER ==
--- NOTE | 2018-04-09 11:56 | REP ---
Clinical: Anatomical evaluation. Comparison: 03/22/2018 . Findings: Examination demonstrates a single live intrauterine in footling breech presentation. motion is identified by technologist. Placenta is noted anterior and grade grade 1 without evidence for placenta previa or abruption. Amniotic fluid volume is normal. Cervix measures 4.3 cm in length and appears closed. Nuchal cord cannot be excluded. Gestational age by LMP 21 weeks 6 days with LINO 08/14/2018 . Gestational age by current measurements 21 weeks 5 days with LINO 08/15/2018 . FHR equals 149 beats per minute. Estimated weight 449 grams ( 42nd percentile). Anatomical assessment demonstrates normal structures including cranium, choroid plexus, cavum, cerebellum/posterior fossa, facial features, lungs, four-chamber heart/ventricular outflow tracts, diaphragm, stomach, cord insertion/three-vessel cord, kidneys/bladder, and spine. Impression: 1. Single live intrauterine in breech presentation demonstrating appropriate interval growth. 2. Nuchal cord cannot be excluded. 3. In conjunction with prior examination anatomical assessment is complete and normal. Electronically Signed by Leon Méndez MD 04/09/2018 11:47 A
== END ==
LOC: M RAD 10:58
PROVIDERS: ATTEND Specialist
DX: Z36.89 Encounter for other specified antenatal screening (principal); Z3A.21 21 weeks gestation of pregnancy

== ENCOUNTER 2018-05-02 12:34 | Outpatient (CLI) | payer OTHER ==
[~2018-05-02] VITALS: Ht 170.2 cm; Wt 99.2 kg
[2018-05-02 12:55] VITALS: BP 121/62
== END 2018-05-02 14:00 | disposition home or self-care (01) ==
LOC: M LDO 12:34
PROVIDERS: ATTEND Specialist
DX: O36.8120 Decreased fetal movements, second trimester, not applicable or unspecified (principal); Z3A.25 25 weeks gestation of pregnancy
CPT/HCPCS: 59025; G0378; G0463

== ENCOUNTER → 2018-05-17 | Outpatient (CLI) | payer OTHER ==
[2018-05-17 17:45] LABS: BASO % 0.1 % (0.0-1.0); EOS # 0.1 10^3/uL (0.0-0.50); EOS % 0.5 % (0.0-3.0); HEMATOCRIT 31.7 % (36.0-47.0); HEMOGLOBIN 10.7 g/dl (12.0-15.5); LYMPH # 2.8 10^3/uL (1.5-6.5); LYMPH % 23.6 % (24.0-44.0); MEAN CORPUSCULAR HEMOGLOBIN 31.8 pg (27.0-33.0); MEAN CORPUSCULAR HGB CONC 33.8 g/dl (32.0-36.5); MEAN CORPUSCULAR VOLUME 94.3 fl (80.0-96.0); MONO # 0.8 10^3/uL (0.0-0.8); MONO % 6.5 % (0.0-5.0); NEUTROPHILS # 8.1 10^3/uL (1.8-7.7); NEUTROPHILS % 68.8 % (36.0-66.0); PLATELET COUNT, AUTOMATED 277 10^3/uL (150-450); RED BLOOD COUNT 3.36 10^6/uL (4.00-5.40); WHITE BLOOD COUNT 11.7 10^3/uL (4.0-10.0)
== END ==
LOC: M SMT 13:09
PROVIDERS: ATTEND Specialist
DX: O99.89 Other specified diseases and conditions complicating pregnancy, childbirth and the puerperium (principal); Z3A.00 Weeks of gestation of pregnancy not specified

== ENCOUNTER 2018-06-23 15:58 | Outpatient (CLI) | payer OTHER ==
[~2018-06-23] VITALS: Ht 167.6 cm; Wt 104.4 kg
[2018-06-23 16:19] VITALS: BP 124/59
[2018-06-23] MEDS ORDERED: MAPA500T2 PO (16:25)
[2018-06-23] MEDS ORDERED: LORATADINE 10 MG TAB PO ONE (17:00)
[2018-06-23] MEDS ORDERED: ONDANSETRON 4 MG ORAL DISINTEGRATING TAB (Q0162 PER 1MG) PO ONE (17:00)
[2018-06-23 17:21] LABS: HEMATOCRIT 29.6 % (36.0-47.0); MEAN CORPUSCULAR HGB CONC 33.8 g/dl (32.0-36.5); MEAN CORPUSCULAR VOLUME 91.6 fl (80.0-96.0); PLATELET COUNT, AUTOMATED 224 10^3/uL (150-450); RED BLOOD COUNT 3.23 10^6/uL (4.00-5.40); WHITE BLOOD COUNT 9.6 10^3/uL (4.0-10.0)
[2018-06-23 17:47] LABS: ALBUMIN 2.5 GM/DL (3.2-5.2); ALT/SGPT 17 U/L (12-78); BILIRUBIN,TOTAL 0.2 MG/DL (0.2-1.0); BLOOD UREA NITROGEN 7 MG/DL (7-18); CALCIUM LEVEL 8.8 MG/DL (8.5-10.1); CARBON DIOXIDE LEVEL 21 MEQ/L (21-32); CHLORIDE LEVEL 110 MEQ/L (98-107); CREATININE FOR GFR 0.52 MG/DL (0.55-1.30); GLOMERULAR FILTRATION RATE > 60.0 (>60); GLUCOSE, FASTING 103 MG/DL (70-100); SODIUM LEVEL 140 MEQ/L (136-145); TOTAL PROTEIN 6.2 GM/DL (6.4-8.2)
== END 2018-06-23 18:24 | disposition home or self-care (01) ==
LOC: M LDO 15:58
PROVIDERS: ATTEND Advanced Practice Midwife
DX: O99.89 Other specified diseases and conditions complicating pregnancy, childbirth and the puerperium (principal); R55 Syncope and collapse; J02.9 Acute pharyngitis, unspecified; Z3A.32 32 weeks gestation of pregnancy
CPT/HCPCS: 36415; 59025; 80053; 85027; 87070; 87077; G0378; G0463; Q0162

== ENCOUNTER 2018-07-08 18:46 | Outpatient (CLI) | payer OTHER ==
[~2018-07-08] VITALS: Ht 170.2 cm; Wt 105.4 kg
[~2018-07-08 18:46] MED LIST changes: +MAPA500T2 PO
[2018-07-08 19:01] VITALS: BP 134/63
[2018-07-08 20:56] LABS: HEMATOCRIT 30.4 % (36.0-47.0); HEMOGLOBIN 10.3 g/dl (12.0-15.5); MEAN CORPUSCULAR HEMOGLOBIN 31.3 pg (27.0-33.0); MEAN CORPUSCULAR HGB CONC 33.9 g/dl (32.0-36.5); MEAN CORPUSCULAR VOLUME 92.4 fl (80.0-96.0); PLATELET COUNT, AUTOMATED 224 10^3/uL (150-450); RED BLOOD COUNT 3.29 10^6/uL (4.00-5.40)
[2018-07-08 21:29] VITALS: BP 117/53
[2018-07-09 00:35] VITALS: BP 121/57
--- NOTE | 2018-07-09 00:51 | NUR ---
L&D Triage Note DOS 07/07/2018 S: 28yo G2P at 34w6d presents to L&D after a falling down 2-3 step where she landed on her side. Denies vaginal bleeding, LOF or ctx. Reports active movement. O: vss, AF Cat 1 tracing with prolong monitoring with irregular contractions Gen: well appearing abd: gravid, nttp Labs: Plts 224 fibrinogen 616, KB neg A/P: 28yo s/p fall with reassuring status -home with PTL precautions and FKCs -f/u at next OB appt Tricia Morse MD
== END 2018-07-09 00:43 | disposition home or self-care (01) ==
LOC: M LDO 18:46
PROVIDERS: ATTEND Obstetrics & Gynecology
DX: O26.893 Other specified pregnancy related conditions, third trimester (principal); O47.03 False labor before 37 completed weeks of gestation, third trimester; Z3A.34 34 weeks gestation of pregnancy; W10.8XXA Fall (on) (from) other stairs and steps, initial encounter; Y92.89 Other specified places as the place of occurrence of the external cause; Y93.89 Activity, other specified; Y99.8 Other external cause status
CPT/HCPCS: 36415; 59025; 85027; 85384; 85460; G0378; G0463

== ENCOUNTER → 2018-07-15 | Outpatient (REF) | payer OTHER | LOC: M LAB REF 16:56 | PROVIDERS: ATTEND Specialist | DX: M32.9 Systemic lupus erythematosus, unspecified (principal); Z3A.35 35 weeks gestation of pregnancy ==

== ENCOUNTER → 2018-07-20 | Outpatient (REF) | payer OTHER | LOC: M LAB REF 17:34 | PROVIDERS: ATTEND Advanced Practice Midwife | DX: Z3A.35 35 weeks gestation of pregnancy (principal) ==

== ENCOUNTER → 2018-07-30 | Outpatient (CLI) | payer OTHER ==
[~2018-07-30] MED LIST changes: +COLA100C5 PO; +IBUP-1022 PO; +PEG1POW PO; +PERCOCET PO; +SERT-155 PO
--- NOTE | 2018-07-30 16:05 | REP ---
HISTORY: Followup growth. Multiple ultrasonographic images of the gravid uterus show a single living intrauterine gestation in the cephalic presentation. Doppler interrogation of the heart shows a heart rate of 153 beats per minute. The placenta is anterior and not low lying. The subjective amniotic fluid volume is within normal limits. The calculated amniotic fluid index is 8.0 with an expected range 7.3 to 24.0. Doppler interrogation of the umbilical artery shows an AB ratio of 2.12. This is within the normal range. A full anatomical screen was performed on priors exams. BPD 9.6 cm = 39 weeks 2 day HC 33.4 cm = 38 weeks 1 day AC 31.8 cm = 35 weeks 5 days FL 7.0 cm = 36 weeks 0 days The estimated weight is 2935 grams which is at the 34th percentile for a 37 week 6 day gestational age. IMPRESSION: Single living intrauterine gestation as described above with an estimated gestational age of 37 weeks 0 days via composite criteria and an estimated date of delivery of 08/20/2018 by today's exam. Electronically Signed by Noah Sutherland DO 07/30/2018 05:02 P
== END ==
LOC: M RAD 14:45
PROVIDERS: ATTEND Obstetrics & Gynecology
DX: O99.89 Other specified diseases and conditions complicating pregnancy, childbirth and the puerperium (principal); Z3A.37 37 weeks gestation of pregnancy

== ENCOUNTER 2018-08-03 05:03 | Inpatient (IN) | payer OTHER ==
[2018-08-03] VITALS (7 sets, daily range): BP systolic 108–138; BP diastolic 58–70
[~2018-08-03] VITALS: Ht 170.2 cm; Wt 108.7 kg
[~2018-08-03 05:03] MED LIST changes: -COLA100C5 PO; -IBUP-1022 PO; -PEG1POW PO; -PERCOCET PO; -SERT-155 PO
[2018-08-03] MEDS ORDERED: BICITRA 30ML SOLN UDC PO ONE (05:30)
[2018-08-03] MEDS ORDERED: LR 800 ML IV ONE (05:30)
[2018-08-03 06:06] LABS: HEMOGLOBIN 10.7 g/dl (12.0-15.5); MEAN CORPUSCULAR HEMOGLOBIN 31.6 pg (27.0-33.0); MEAN CORPUSCULAR HGB CONC 34.5 g/dl (32.0-36.5); MEAN CORPUSCULAR VOLUME 91.4 fl (80.0-96.0); PLATELET COUNT, AUTOMATED 200 10^3/uL (150-450); RED BLOOD COUNT 3.39 10^6/uL (4.00-5.40)
[2018-08-03] MEDS ORDERED: LR 1,000 ML IV SCH ×3 (06:30→09:15)
[2018-08-03] MEDS ORDERED: OXYTOCIN INJ 10 UNITS/ML VIAL (J2590) As Ordered ONE (07:14)
[2018-08-03] MEDS ORDERED: MORPHINE PRES-FREE INJ 10 MG/10 ML VIAL (J2274) As Ordered ONE (07:21)
[2018-08-03] MEDS ORDERED: BUPIVACAINE/DEXTROSE 0.75% 2 ML AMP As Ordered ONE (07:21)
[2018-08-03] MEDS ORDERED: ACETAMINOPHEN 1000MG 100ML IV BTL (OFIRMEV) (J0131 PER 10MG) As Ordered ONE (07:24)
[2018-08-03] MEDS ORDERED: ONDANSETRON 4MG/2ML VIAL (J2405) IV PRN ×3 (07:40→09:15)
[2018-08-03] MEDS ORDERED: diphenhydrAMINE INJ 50MG/ML VIAL (J1200) IV PRN (07:40)
[2018-08-03] MEDS ORDERED: NALOXONE INJ 0.4 MG/1 ML VIAL (J2310) IV PRN ×2 (07:40)
[2018-08-03] MEDS ORDERED: ePHEDrine SULFATE 25 MG/5 ML(5MG/ML) SYRINGE As Ordered ONE (07:51)
[2018-08-03] MEDS ORDERED: ONDANSETRON 4MG/2ML VIAL (J2405) As Ordered ONE (07:51)
[2018-08-03] MEDS ORDERED: METOCLOPRAMIDE INJ 10MG/2ML VIAL (J2765) As Ordered ONE (08:27)
[2018-08-03] MEDS ORDERED: MEASLES,MUMPS,RUBELLA VACCINE INJ (MMR-II) (90707) SC SCH (09:00)
[2018-08-03] MEDS ORDERED: PRENATAL VITAMINS CHEWABLE TABLET PO SCH (09:00)
[2018-08-03] MEDS ORDERED: PERCOCET 5MG/325MG TAB PO PRN ×2 (09:00→09:15)
[2018-08-03] MEDS ORDERED: RHOGAM 300 MCG (1500 IU) INJ (J2790) IM SCH (09:00)
[2018-08-03] MEDS ORDERED: OXYTOCIN DRIP 30 UNITS in APPROPRIATE DILUENT 1 EA IV SCH (09:00)
[2018-08-03] MEDS ORDERED: OXYTOCIN 30 UNITS IN 0.9% NaCl 500ML IV BAG (J2590) As Ordered ONE (09:02)
[2018-08-03] MEDS ORDERED: fentaNYL 100 MCG/2 ML INJECTION (J3010) IV PRN (09:15)
[2018-08-03] MEDS: PERCOCET 5MG/325MG TAB PO PRN ×3 (12:51→22:55)
[2018-08-03] MEDS: METOCLOPRAMIDE INJ 10MG/2ML VIAL (J2765) IV PRN (14:27)
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
[2018-08-03] MEDS: NALBUPHINE HCL 10 MG/ML AMP (J2300) IV PRN (18:59)
[2018-08-03] MEDS: DOCUSATE SODIUM 100 MG CAP PO PRN (20:34)
[2018-08-03] MEDS: metFORMIN (GLUCOPHAGE) 1000 MG TABLET PO SCH (22:54)
[2018-08-03] MEDS: PRENATAL VITAMINS CHEWABLE TABLET PO SCH (22:54)
[2018-08-04] MEDS: METOCLOPRAMIDE INJ 10MG/2ML VIAL (J2765) IV PRN (02:33)
[2018-08-04] MEDS: PERCOCET 5MG/325MG TAB PO PRN ×5 (02:37→22:07)
[2018-08-04] MEDS ORDERED: IBUP-1022 PO (05:12)
[2018-08-04] MEDS: NALBUPHINE HCL 10 MG/ML AMP (J2300) IV PRN (05:13)
[2018-08-04 05:18] VITALS: BP 126/58
[2018-08-04 07:34] LABS: HEMATOCRIT 30.5 % (36.0-47.0); HEMOGLOBIN 10.2 g/dl (12.0-15.5); MEAN CORPUSCULAR HEMOGLOBIN 30.6 pg (27.0-33.0); MEAN CORPUSCULAR HGB CONC 33.4 g/dl (32.0-36.5); MEAN CORPUSCULAR VOLUME 91.6 fl (80.0-96.0); PLATELET COUNT, AUTOMATED 211 10^3/uL (150-450); RED BLOOD COUNT 3.33 10^6/uL (4.00-5.40); WHITE BLOOD COUNT 13.4 10^3/uL (4.0-10.0)
[2018-08-04] MEDS: SIMETHICONE 80 MG CHEW TAB PO PRN (08:05)
[2018-08-04] MEDS: SERTRALINE HCL 50 MG TAB PO SCH (08:34)
[2018-08-04] MEDS: diphenhydrAMINE 25 MG CAP PO PRN ×4 (09:10→22:06)
[2018-08-04 09:51] VITALS: BP 135/63
[2018-08-04 14:03] VITALS: BP 146/67
[2018-08-04 17:33] VITALS: BP 128/66
[2018-08-04] MEDS: DOCUSATE SODIUM 100 MG CAP PO PRN (21:10)
[2018-08-04] MEDS: PRENATAL VITAMINS CHEWABLE TABLET PO SCH (21:10)
[2018-08-04] MEDS: metFORMIN (GLUCOPHAGE) 1000 MG TABLET PO SCH (21:11)
[2018-08-05] MEDS: PERCOCET 5MG/325MG TAB PO PRN ×5 (03:27→21:51)
[2018-08-05] MEDS: SIMETHICONE 80 MG CHEW TAB PO PRN (03:30)
[2018-08-05 05:00] VITALS: BP 115/65
[2018-08-05] MEDS: SERTRALINE HCL 50 MG TAB PO SCH (08:14)
[2018-08-05] MEDS: MIRALAX *UNIT DOSE* 17GM PACKET PO PRN (10:47)
[2018-08-05] MEDS: diphenhydrAMINE 25 MG CAP PO PRN ×2 (12:49→20:19)
[2018-08-05 18:00] VITALS: BP 137/75
[2018-08-05] MEDS: PRENATAL VITAMINS CHEWABLE TABLET PO SCH (20:19)
[2018-08-05] MEDS: metFORMIN (GLUCOPHAGE) 1000 MG TABLET PO SCH (20:19)
[2018-08-05] MEDS: DOCUSATE SODIUM 100 MG CAP PO PRN (21:49)
[2018-08-06] MEDS: PERCOCET 5MG/325MG TAB PO PRN ×2 (04:41→09:19)
[2018-08-06 06:10] VITALS: BP 128/61
[2018-08-06] MEDS: MIRALAX *UNIT DOSE* 17GM PACKET PO PRN (06:41)
--- NOTE | 2018-08-06 07:10 | IPNPDOC ---
Progress Note Date of Service: Aug 06, 2018 Progress Note SUBJECT: 28 yo POD#3 s/p pLTCS. She is doing well, pain is well controlled. Tolerating PO, voiding, ambulating. No CP, SOB, dizziness, n/v. +flatus OBJECTIVE: Vital Signs Label Value Date Time Patient Temperature 97.6 degrees F 08/06/18 0610 Temperature Source Temporal 08/06/18 0610 Pulse 82 08/06/18 0610 Respiratory Rate 18 bpm 08/06/18 0610 Blood Pressure Assessment 128/61 (83) 08/06/18 0610 Source Automatic Cuff (NIBP) Alert and oriented times three. Breath sounds clear to auscultation. Heart rate: Regular rate and rhythm, no murmurs, rubs or gallops. Abdomen: Fundus firm at U-2. Soft, NTTP. Incision c/d/i ASSESSMENT: 28 yo POD#1 s/p pLTCS, doing well PLAN: -anticipate d/c today -2 wk f/u with Dr. Tom Umanzor, PGY3 VS, I&O, 24H, Fishbone Vital Signs/I&O Vital Signs Date Time Temp Pulse Resp B/P (MAP) Pulse Ox O2 Delivery O2 Flow Rate FiO2 08/06/18 06:10 97.6 82 18 128/61 (83) 08/04/18 17:33 96 ALINA UMANZOR PGY-3 Aug 06, 2018 07:10
[2018-08-06] MEDS ORDERED: PEG1POW PO (07:16)
[2018-08-06] MEDS ORDERED: COLA100C5 PO (07:16)
[2018-08-06] MEDS ORDERED: SERT-155 PO (07:16)
[2018-08-06] MEDS ORDERED: PERCOCET PO (07:16)
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
[2018-08-06] MEDS: SERTRALINE HCL 50 MG TAB PO SCH (09:17)
== END 2018-08-06 10:15 | disposition home or self-care (01) | DRG 773 ==
LOC: M LDI 05:03 → M OBS 10:15
PROVIDERS: ADMIT Specialist; ATTEND Specialist
PROC: 10D00Z1 Extraction of Products of Conception, Low, Open Approach (ICD-10-PCS; principal; 2018-08-03 07:30)
DX: O24.425 Gestational diabetes mellitus in childbirth, controlled by oral hypoglycemic drugs (principal); Z37.0 Single live birth; Z3A.38 38 weeks gestation of pregnancy; Z88.0 Allergy status to penicillin; Z88.8 Allergy status to other drugs, medicaments and biological substances; Z91.038 Other insect allergy status; Z91.013 Allergy to seafood; Z88.5 Allergy status to narcotic agent; Z79.899 Other long term (current) drug therapy; F43.10 Post-traumatic stress disorder, unspecified; O99.344 Other mental disorders complicating childbirth; Z91.410 Personal history of adult physical and sexual abuse; M32.10 Systemic lupus erythematosus, organ or system involvement unspecified; O26.899 Other specified pregnancy related conditions, unspecified trimester